=== PATIENT | male | born 1950 | race Caucasian/White ===

== ENCOUNTER 2024-05-08 06:00 | Day surgery (SDC) | payer OTHER ==
[2024-05-01 11:14] VITALS: BP 139/79
[2024-05-01 11:37] LABS: HEMATOCRIT 40.4 % (39.0-48.0); HEMOGLOBIN 13.6 g/dL (13-16.00); MEAN CELL VOLUME 94.5 fL (80.0-100.00); MEAN CORPUSCULAR HEMOGLOBIN 31.8 pg (27.00-32.0); MEAN CORPUSCULAR HGB CONC 33.7 g/dl (32.0-36.0); PLATELET COUNT 225 K/uL (150-450); RED BLOOD COUNT 4.28 M/uL (4.00-6.00); RED CELL DISTRIBUTION WIDTH 14.9 % (11.5-14.5)
[2024-05-01 11:41] LABS: PH,URINE 5.5 (5.0-8.0); URINE APPEARANCE Clear; URINE BILIRRUBIN Negative (NEGATIVE); URINE BLOOD Negative; URINE COLOR Yellow; URINE KETONE Negative (NEGATIVE); URINE LEUKOCYTE Negative; URINE NITRATE Negative; URINE UROBILINOGEN 0.2 E.U./dl
[2024-05-01 11:42] LABS: URINE BACTERIA 9.7 uL (0.0-1933); URINE EPITHELIAL CELLS 2.2 uL (0.0-38.8); URINE WBC 2.8 uL (0.0-23.2)
[2024-05-01 11:53] LABS: URINE CAST 0.44 uL (0.0-1.40); URINE GLUCOSE >=1000 MG/DL (NEGATIVE); URINE PROTEIN 100 (NEGATIVE); URINE RBC 0.8 uL (0.0-20.8)
[2024-05-01 11:56] LABS: INR 1.01; PARTIAL THROMBOPLASTIN TIME 29.1 SECONDS (22.0-34.0)
[2024-05-01 12:09] LABS: CALCIUM 9.1 mg/dL (8.5-10.1); CREATININE SERUM 1.89 mg/dL (0.70-1.30); GFR 35.04; PHOSPHOROUS 3.1 mg/dL (2.5-4.9); POTASSIUM 4.47 mEq/L (3.5-5.1)
[~2024-05-08] VITALS: Ht 177.8 cm; Wt 110.7 kg
[~2024-05-08 06:00] MED LIST: AVAPRO300 MG PO; HUMULIN R100 UNIT/1 SUBCUTANEO; TOPROL XL200 MG PO
[2024-05-08] MEDS ORDERED: POVIDONE-IODINE 118 ML BOTT TOP ONE (11:45)
[2024-05-08] MEDS ORDERED: DEXAMETHASONE SODIUM PHOSPHATE 4 MG/ML VIAL IJ ONE (11:45)
[2024-05-08] MEDS ORDERED: LIDOCAINE HCL 1%/EPINEPHRINE 20ML VIAL IJ ONE (11:45)
[2024-05-08] MEDS ORDERED: CEFAZOLIN SODIUM 1,000 MG VIAL IV ONE (11:45)
[2024-05-08] MEDS ORDERED: CIPROFLOX-DEXA7.5 ML OT (12:12)
[2024-05-08] MEDS ORDERED: MORPHINE SULFATE 4 MG/ML VIAL IV ONE (13:05)
== END 2024-05-08 14:30 | disposition home or self-care (01) ==
LOC: CIR.AMB 06:00
PROVIDERS: ATTEND Otolaryngology Otology & Neurotology
DX: H74.41 Polyp of right middle ear (principal); H90.A31 Mixed conductive and sensorineural hearing loss, unilateral, right ear with restricted hearing on the contralateral side; I10 Essential (primary) hypertension; E11.9 Type 2 diabetes mellitus without complications